=== PATIENT | male | born 1985 | race Caucasian/White ===

== ENCOUNTER 2025-01-09 14:48 | Emergency (ER) | payer MEDICAID, SELFPAY ==
--- NOTE | ~2025-01-09 | US_ITS ---
CLINICAL HISTORY: right testicular pain Scrotal ultrasound with vascular interrogation Comparison: None Findings: The testes are normal in echotexture without lesions. Normal arterial/venous color Doppler and flow pattern. Right testis size, normal: 4.7 x 2.3 x 2.8 cm, volume of 16.2mL. Left testis size, normal: 4.4 x 2.2 x 2.9 cm, volume of 14.5mL. The epididymides are normal in size and echotexture. Normal color Doppler. Right epididymal head cyst versus spermatocele measuring 0.2 x 0.2 x 0.3 cm. No hydrocele; fluid is within normal limits. No right varicocele. Left varicocele. Impression: No acute findings. This document has been electronically signed by: Elda Horton MD on 01/09/2025 16:56:44
[2025-01-09 15:06] VITALS: BP 140/86; PULSE 70; RESP 20; TEMP 37; O2SAT 98; BMI 33.0
--- NOTE | 2025-01-09 15:07 | ED.GENADULT ---
HPI - General Adult General Chief complaint: Urogenital-Male Stated complaint: right testicle pain Related Data Allergies Allergy/AdvReac Type Severity Reaction Status Date / Time No Known Allergies Allergy Unverified 01/09/25 15:08 [No Known Allergies*] Physical Exam ED Vital Signs: Vital Signs - 24 hr 01/09/25 15:06 Temperature 98.6 F Pulse Rate 70 Respiratory Rate 20 Blood Pressure 140/86 H Pulse Oximetry 98 Oxygen Delivery Method Room Air BMI result Body Mass Index 33.0 Course Course Course Narrative: This is a rapid medical exam performed by Kim Fields NP: Additional HPI, ROS, PE not included below will be deferred to primary provider. Patient is a 31-year-old male presenting emergency department with complaint of right testicular pain since this morning. States pain begins to inguinal area and radiates down. Denies any swelling or discoloration. Reports similar symptoms in the past year. Area not visualized in triage due to privacy concerns. Plan: UA, u/s Discharge Plan Discharge Clinical Impression: Pain in right testicle Patient Disposition: Left W/O Completing Treatment
== END 2025-01-09 20:57 | disposition left against medical advice (07) ==
PROVIDERS: Emergency Provider Emergency Medicine
DX: N50.811 Right testicular pain (principal); R10.2 Pelvic and perineal pain
CPT/HCPCS: 76870; 93975; 99281; 99284

== ENCOUNTER → 2025-01-09 15:08 | Outpatient (BNV) | payer OTHER, SELFPAY | PROVIDERS: Visit Provider Radiology Diagnostic Radiology | DX: N50.811 Right testicular pain (principal) | CPT/HCPCS: 76870 ==